=== PATIENT | female | born 1955 | race Caucasian/White ===

== ENCOUNTER 2017-08-06 22:37 | Emergency (ER) | payer BC, SELFPAY ==
[2017-08-06] MEDS ORDERED: Ondansetron ODT 4 MG TAB ONE (23:20)
== END 2017-08-06 23:21 | disposition home or self-care (01) ==
LOC: BURERS 22:37
DX: J18.9 Pneumonia, unspecified organism (principal); E11.9 Type 2 diabetes mellitus without complications; F32.9 Major depressive disorder, single episode, unspecified
CPT/HCPCS: 99284; Q0162